=== PATIENT | female | born 2000 | race Two or more races ===

== ENCOUNTER 2019-08-20 12:17 | Emergency (ER) | payer MEDICAID, OTHER ==
[~2019-08-20] VITALS: Ht 152.4 cm; Wt 38.6 kg
[2019-08-20 12:22] VITALS: BP 111/65
[2019-08-20] MEDS ORDERED: IBUPROFEN 600 MG TAB PO ONE (13:15)
== END 2019-08-20 13:31 | disposition home or self-care (01) ==
LOC: ER 12:17
DX: S63.610A Unspecified sprain of right index finger, initial encounter (principal); R42 Dizziness and giddiness; Z32.02 Encounter for pregnancy test, result negative; W51.XXXA Accidental striking against or bumped into by another person, initial encounter; Y93.72 Activity, wrestling; Y92.89 Other specified places as the place of occurrence of the external cause; Y99.8 Other external cause status
CPT/HCPCS: 29130; 73140; 81025

== ENCOUNTER 2019-09-05 14:43 | Emergency (ER) | payer MEDICAID ==
[~2019-09-05] VITALS: Ht 152.4 cm; Wt 38.6 kg
[2019-09-05 17:18] VITALS: BP 106/54
== END 2019-09-05 18:02 | disposition home or self-care (01) ==
LOC: ER 14:47
DX: S00.83XA Contusion of other part of head, initial encounter (principal); S60.021A Contusion of right index finger without damage to nail, initial encounter; Y04.2XXA Assault by strike against or bumped into by another person, initial encounter; Y93.89 Activity, other specified; Y92.89 Other specified places as the place of occurrence of the external cause; Y99.8 Other external cause status
CPT/HCPCS: 70450; 73130